=== PATIENT | male | born 1995 | race Caucasian/White ===

== ENCOUNTER 2020-09-13 09:12 | Outpatient (REF) | payer OTHER, SELFPAY | END 2020-09-13 09:13 | disposition home or self-care (01) | LOC: HO.LAB 09:12 | PROVIDERS: Visit Provider Nurse Practitioner Family | DX: J30.9 Allergic rhinitis, unspecified (principal); Z20.822 Contact with and (suspected) exposure to COVID-19 | CPT/HCPCS: 36415; U0003; U0005 ==

== ENCOUNTER 2020-10-05 07:48 | Outpatient (REF) | payer OTHER, SELFPAY ==
[2020-10-05 08:20] LABS: MANUAL DIFF FLAG NO
[2020-10-05 08:34] LABS: Basophils Percent Auto 0.4 % (0-2); Eosinophils Absolute Auto 0.1 X10*3/uL (0.0-0.4); Eosinophils Percent Auto 2.8 % (0-4); Hematocrit 44.2 % (42-52); Hemoglobin 15.9 g/dl (14.0-18.0); Imm Gran Abs Auto 0.01 X10*3/uL (0.00-0.03); Imm Gran Pct Auto 0.2 % (0.0-0.4); Lymphocytes Absolute Auto 1.7 X10*3/uL (1.2-4.9); Lymphocytes Percent Auto 34.8 % (20-40); Mean Corpuscular Hemoglobin 31.9 pg (27.0-33.0); Mean Corpuscular Volume 88.8 fL (80-98); Mean Platelet Volume 10.1 fL (9.4-12.4); Monocytes Absolute Auto 0.4 X10*3/uL (0.1-1.2); Monocytes Percent Auto 7.3 % (2-11); Neutrophils Absolute Auto 2.7 X10*3/uL (2.0-8.3); Neutrophils Percent Auto 54.5 % (45-73); Platelet Count 204 X10*3/uL (160-400); Red Blood Count 4.98 X10*6/uL (4.60-5.80); Red Cell Distribution Width 11.9 % (11.0-16.0); White Blood Count 4.9 X10*3/uL (4.8-10.8)
[2020-10-05 09:00] LABS: Alanine Aminotransferase 27 U/L (0-40); Albumin Level 4.4 g/dL (3.5-5.0); Alkaline Phosphatase 59 U/L (39-117); Anion Gap 12 (12-20); Aspartate Amino Transferase 25 U/L (5-37); Bilirubin Total 0.6 mg/dL (0.0-1.0); Blood Urea Nitrogen 16 mg/dL (9-16); Calcium 9.1 mg/dL (8.4-10.2); Carbon Dioxide 28 mmol/L (22-29); Chloride 106 mmol/L (96-108); Cholesterol 169 mg/dL; Estimated Glomerular Filt Rate > 60; Glucose Fasting 99 mg/dL (60-99); HDL Cholesterol 46 mg/dL; LDL Cholesterol Calculated 110 mg/dl; Potassium 4.4 mmol/L (3.3-5.1); Sodium 142 mmol/L (135-145); Total Protein 6.8 g/dL (6.5-8.0); Triglycerides 69 mg/dL
== END 2020-10-05 07:49 | disposition home or self-care (01) ==
LOC: HO.LAB 07:48
PROVIDERS: PCP Internal Medicine; Visit Provider Internal Medicine
DX: E11.9 Type 2 diabetes mellitus without complications (principal); Z00.00 Encounter for general adult medical examination without abnormal findings
CPT/HCPCS: 36415; 80053; 80061; 85025

== ENCOUNTER 2020-10-20 10:06 | Outpatient (REF) | payer OTHER, SELFPAY ==
[2020-10-20 12:37] LABS: Syphilis Screen Nonreactive (Nonreactive)
[2020-10-27 20:41] LABS: HSV 1 IgM IFA Negative (Negative); HSV 2 IgM IFA Negative (Negative)
== END 2020-10-20 10:07 | disposition home or self-care (01) ==
LOC: HO.HMGCLDS 10:06
PROVIDERS: PCP Internal Medicine; Visit Provider Nurse Practitioner Family
DX: N48.1 Balanitis (principal); L01.00 Impetigo, unspecified
CPT/HCPCS: 36415; 86695; 86696; 86780

== ENCOUNTER 2021-08-14 09:52 | Outpatient (REF) | payer OTHER, SELFPAY ==
[2021-08-14 10:13] LABS: MANUAL DIFF FLAG NO
[2021-08-14 10:47] LABS: Basophils Percent Auto 0.2 % (0-2); Eosinophils Absolute Auto 0.1 X10*3/uL (0.0-0.4); Eosinophils Percent Auto 1.8 % (0-4); Hematocrit 46.8 % (42.0-52.0); Hemoglobin 16.7 g/dl (14.0-18.0); Imm Gran Abs Auto 0.01 X10*3/uL (0.00-0.03); Imm Gran Pct Auto 0.2 % (0.0-0.4); Lymphocytes Absolute Auto 1.7 X10*3/uL (1.2-4.9); Lymphocytes Percent Auto 39.3 % (20-40); Mean Corpuscular HGB Conc 35.7 g/dl (31.0-36.0); Mean Corpuscular Hemoglobin 31.9 pg (27.0-33.0); Mean Corpuscular Volume 89.5 fL (80.0-98.0); Mean Platelet Volume 10.5 fL (9.4-12.4); Monocytes Absolute Auto 0.3 X10*3/uL (0.1-1.2); Monocytes Percent Auto 7.7 % (2-11); Neutrophils Absolute Auto 2.3 x10*3/uL (2.0-8.3); Neutrophils Percent Auto 50.8 % (45-73); Platelet Count 195 X10*3/uL (160-400); Red Blood Count 5.23 X10*6/uL (4.60-5.80); Red Cell Distribution Width 12.2 % (11.0-16.0); White Blood Count 4.4 X10*3/uL (4.8-10.8)
[2021-08-14 11:20] LABS: Alanine Aminotransferase 20 U/L (0-40); Albumin Level 4.6 g/dL (3.5-5.0); Alkaline Phosphatase 62 U/L (39-117); Anion Gap 12 (12-20); Aspartate Amino Transferase 22 U/L (5-37); Bilirubin Total 0.9 mg/dL (0.0-1.0); Blood Urea Nitrogen 14 mg/dL (9-16); Calcium 9.5 mg/dL (8.4-10.2); Carbon Dioxide 30 mmol/L (22-29); Chloride 102 mmol/L (96-108); Cholesterol 171 mg/dL; Estimated Glomerular Filt Rate > 60; Glucose Fasting 89 mg/dL (60-99); HDL Cholesterol 42 mg/dL; LDL Cholesterol Calculated 109 mg/dl; Potassium 4.7 mmol/L (3.3-5.1); Sodium 139 mmol/L (135-145); Total Protein 7.2 g/dL (6.5-8.0); Triglycerides 101 mg/dL
[2021-08-14 11:32] LABS: Thyroid Stimulating Hormone 2.22 uIU/mL (0.32-4.0)
== END 2021-08-14 09:53 | disposition home or self-care (01) ==
LOC: HO.LAB 09:52
PROVIDERS: PCP Internal Medicine; Visit Provider Internal Medicine
DX: Z00.00 Encounter for general adult medical examination without abnormal findings (principal); Z13.0 Encounter for screening for diseases of the blood and blood-forming organs and certain disorders involving the immune mechanism
CPT/HCPCS: 36415; 80053; 80061; 84443; 85025

== ENCOUNTER 2022-05-08 15:05 | Outpatient (REF) | payer BC, SELFPAY ==
[2022-05-08 16:04] LABS: Influenza A PCR NEGATIVE (Negative); Influenza B PCR NEGATIVE (Negative); Resp Syncy Virus RNA Qual PCR NEGATIVE (Negative); SARS COV2 PCR INHOUSE NEGATIVE (Negative)
== END 2022-05-08 15:06 | disposition home or self-care (01) ==
LOC: HO.LNP 15:05
PROVIDERS: Visit Provider Physician Assistant
DX: Z20.822 Contact with and (suspected) exposure to COVID-19 (principal); J06.9 Acute upper respiratory infection, unspecified
CPT/HCPCS: 0241U

== ENCOUNTER 2022-12-06 15:30 | Outpatient (AMB) | payer BC, SELFPAY ==
--- NOTE | 2022-12-06 15:47 | A.OFFVIS_ITS ---
Intake Intake Visit Reasons: Advice on contraception Intake Note: Pt presents to the office today for advice on contraception. Allergies pollen extracts Allergy (Mild, Verified 12/25/22 13:51) Sneezing HPI HPI Comments History of Present Illness Details Mikel is a very pleasant male. He is a patient of Dr. Cunningham? . He is seen for the following urologic condition - anxiety about health - Vasectomy evaluation Vasectomy evaluation The patient presents for vasectomy consultation. He is currently He has fathered - 1 child, with a single partner. The youngest child is - 2 years old. His partner is aware and permissive for a vasectomy Current form of control is none. The vasectomy may be complicated due to a history of no complicating issues, inguinal hernia repair, orchidopexy, history of orchitis, orchiectomy. Patient education has been provided via [employer] video, via printed information, risks of failure, recovery time, bruising and potential pain syndrome have been stressed Has interest in vasectomy and questions answered [facility] Surgical History No pertinent past surgical history Family History Father No problems noted. Mother No problems noted. Social History Housing: Apartment Alcohol intake: current Alcohol intake frequency: a few times a month Patient Tobacco Use Status: Never used Tobacco e-Cigarette/Vaping Use: Never Used Second Hand Smoke Exposure: No service: No Current occupational status: employed Cognitive needs: No Hearing needs: No Vision needs: No Review of Systems Const Denies chills and Denies fever(s) Card Reports no additional complaints and Denies syncope Resp Denies cough GI Denies abdominal pain and Denies heartburn Reports as per HPI and Denies change in libido Neuro Denies syncope Psych Denies change in libido Endo Denies change in libido Physical Exam Const General: cooperative, healthy appearing, comfortable and no acute distress Orientation/consciousness: patient oriented x3 HEENT Face and sinus: Yes normal facial exam Mouth: moist mucous membranes Neck Neck: Yes normal visual inspection, Yes full ROM and Yes trachea midline Chest Chest palpation & inspection: normal inspection of the chest Resp Effort & Inspection: normal respiratory effort, able to speak in complete sentences and no respiratory distress GI Inspection: Yes normal to inspection Back/Spine/Pelvis Cervical Spine: normal cervical lordosis Thoracic/Lumbar Spine: thoracic and lumbar spine normal to inspection Skin General skin exam: no rashes or lesions noted Neuro General: patient oriented x3, gait normal, tone normal and moves all extremities Extrem General: Yes normal to inspection and Yes capillary refill normal Assessment & Plan Assessment & Plan (1) Panic disorder: Code(s): F41.0 - Panic disorder [episodic paroxysmal anxiety] Plan Will call if interested in vasectomy Patient Instructions: Imaging studies, laboratory and physical exam results were discussed and rev iewed in detail. No major barriers to patient understanding were identified. An opportunity to ask questions regarding the treatment plan was provided. All questions were answered. The patient expressed understanding and agreement with the above treatment plan. The patient is aware they should contact our office by phone for worsening of their current condition or the appearance of new urologic symptoms. Compliance is encouraged with any medications and followup testing that is ordered. It is a privilege to participate in the urologic care of your patient. If you have any questions or concerns regarding treatment for the above conditions, or other urologic issues, please do not hesitate to contact me. The office telephone contact is [phone]. This note is constructed using voice recognition software. While every effort has been made to ensure accuracy licensed certified orthotist errors may have been included. Yours sincerely, Dr Everett Herrera MD, [facility] - Urology Providers of Expert, Compassionate Care for the Genitourinary System Coding Level of Care Code New Pt Level 3 (84441) Diagnoses Panic disorder F41.0
== END 2022-12-06 16:44 | disposition home or self-care (01) ==
LOC: HO.HUSH 15:30
PROVIDERS: PCP Internal Medicine; Visit Provider Urology
DX: F41.0 Panic disorder [episodic paroxysmal anxiety] (principal)
CPT/HCPCS: 99203

== ENCOUNTER → 2022-12-06 15:30 | Outpatient (BNVA) | payer BC, SELFPAY | PROVIDERS: PCP Internal Medicine; Visit Provider Urology ==

== ENCOUNTER 2022-12-26 12:30 | Outpatient (REF) | payer BC, SELFPAY | END 2022-12-26 12:31 | disposition home or self-care (01) | LOC: HO.LAB 12:30 | PROVIDERS: PCP Internal Medicine; Visit Provider Internal Medicine | DX: N28.9 Disorder of kidney and ureter, unspecified (principal); D64.9 Anemia, unspecified; E78.5 Hyperlipidemia, unspecified | CPT/HCPCS: 36415; 80053; 80061; 85025 ==

== ENCOUNTER 2023-05-20 08:49 | Outpatient (AMB) | payer BC, SELFPAY ==
[2023-05-20 09:30] VITALS: BP 128/78; PULSE 84; TEMP 36.3; O2SAT 97
--- NOTE | 2023-05-20 09:30 | AM.OFFWIN_ITS ---
Intake Vital Signs 05/20/23 09:30 Height 5 ft 10 in Weight 209 lb 4 oz BMI 30.0 BP 128/78 Blood Pressure Location Rt brachial Position Sitting Pulse 84 Pulse Source Pulse Oximeter Temp 97.4 F Temp Source Temporal Artery Scan Pulse Oximetry (%) 97 Intake Visit Reasons: EP Full body rash Intake Note: pt is here for c/o body rash since yesterday started small and growing up his leg Patient Tobacco Use Status: Never used Tobacco Allergies pollen extracts Allergy (Mild, Verified 05/21/23 06:29) Sneezing Medication List - Last Reconciled 05/21/23 by Jose Menezes MD cetirizine 10 mg PO DAILY PRN fluoxetine 40 mg PO DAILY fluoxetine (Prozac) 20 mg PO DAILY lorazepam 1 mg PO Q6-8H PRN prednisone 60 mg (3 x 20 mg) PO DAILY sumatriptan succinate 25 mg PO Q2-4H PRN Do you need a note to return to daycare/school/sports/work: Yes HPI EP Full body rash HPI Details 27 yr old male presents to the office fo r a sick visit. Pt has noticed a rash on his inner thighs and back of the legs. Symptoms started yesterday. Itching sx present. No fevers or chills. PFSH Surgical History No pertinent past surgical history Family History Father No problems noted. Mother No problems noted. Social History Housing: Apartment Alcohol intake: current Alcohol intake frequency: a few times a month Patient Tobacco Use Status: Never used Tobacco e-Cigarette/Vaping Use: Never Used Second Hand Smoke Exposure: No service: No Current occupational status: employed Cognitive needs: No Hearing needs: No Vision needs: No Physical Exam Vital Signs: Last Vital Signs Temp 97.4 F 05/20/23 09:30 Pulse 84 05/20/23 09:30 BP 128/78 05/20/23 09:30 Pulse Ox 97 05/20/23 09:30 BMI result Body Mass Index 30.0 Skin Other: Fine erythematous rash on the thigh, and back of the leg. No vesicles or pustules. Assessment & Plan Assessment & Plan (1) Rash: Code(s): R21 - Rash and other nonspecific skin eruption Plan: Most likely irritant dermatitis. Trial of prednisone. If sx do not improve to follow up here. Medications: New 2 prednisone 60 mg (3 x 20 mg) PO DAILY 9 tabs 0RF Coding Level of Care Code Est Pt Level 3 (66642) Diagnoses Rash R21
== END 2023-05-20 10:27 | disposition home or self-care (01) ==
PROVIDERS: PCP Internal Medicine; Visit Provider Internal Medicine
DX: R21 Rash and other nonspecific skin eruption (principal)
CPT/HCPCS: 99213

== ENCOUNTER 2023-12-30 12:55 | Outpatient (AMB) | payer BC, SELFPAY ==
[2023-12-30 12:56] VITALS: BP 120/70; PULSE 74; O2SAT 98; BMI 30.4
--- NOTE | 2023-12-30 12:56 | MHC.PC.OV ---
Vital Signs 12/30/23 12:56 Height 5 ft 10 in Weight 212 lb BMI 30.4 BP 120/70 Blood Pressure Location Lt brachial Position Sitting Pulse 74 Pulse Source Pulse Oximeter Pulse Oximetry (%) 98 Oxygen Delivery Method Room Air Intake Visit Reasons: pe Aperture Mask Etcher Required: No Regional Property Manager: Not Required per policy Accompanied by: Self / Same As Patient Allergies pollen extracts Allergy (Mild, Verified 12/30/23 12:57) Sneezing Medication List - Last Reconciled 12/31/23 by Jhony Cunningham MD cetirizine 10 mg PO DAILY PRN fluoxetine 40 mg PO DAILY fluoxetine (Prozac) 20 mg PO DAILY lorazepam 1 mg PO Q6-8H PRN prednisone 60 mg (3 x 20 mg) PO DAILY sumatriptan succinate 25 mg PO Q2-4H PRN Tobacco use date assessed: 12/30/23 Dental Screening Dental Screen Date: 12/30/23 Did you have a dental visit in the last 12 months?: Yes Did you have a dental problem in the last 6 months where you did not have access to dental care?: No Was dental information given to patient?: Patient has dentist HPI pe HPI Details depression on rx; doing well and compliant [facility] Surgical History No pertinent past surgical history Family History Father No problems noted. Mother No problems noted. Social History Housing: Apartment Alcohol intake: current Alcohol intake frequency: a few times a month Patient Tobacco Use Status: Never used Tobacco e-Cigarette/Vaping Use: Never Used Second Hand Smoke Exposure: No service: No Current occupational status: employed Cognitive needs: No Hearing needs: No Vision needs: No Questionnaire PHQ-9 Over the last 2 weeks, how often have you been bothered by any of the following problems? 1. Little interest or pleasure in doing things: not at all 2. Feeling down, depressed, or hopeless: not at all 3. Trouble falling or staying asleep, or sleeping too much: not at all 4. Feeling tired or having little energy: not at all 5. Poor appetite or overeating: not at all 6. Feeling bad about yourself - or that you are a failure or have let yourself or your family down: not at all 7. Trouble concentrating on things, such as reading the newspaper or watching television: not at all 8. Moving or speaking so slowly that other people could have noticed. Or the opposite - being so fidgety or restless that you have been moving around a lot more than usual: not at all 9. Thoughts that you would be better off or of hurting yourself in some way: not at all Total score: 0 49456 - PHQ-9 Billing: Yes Source: Developed by Drs. Speedy Liao, Yuko Sanders, Thee Clarke and colleagues, with an educational bc from [employer]. Thrive Questionnaire Date Thrive assessed: 12/30/23 I am a: Patient What is your living situation today?: I have a steady place to live Within the past 12 months, did the food you bought not last and you didn't have the money to get more?: Never true Within the past 12 months, did you worry whether your food would run out before you got money to buy more?: Never true Do you have trouble paying for medicines?: No Do you have trouble getting transportation to medical appointments?: No Do you have trouble paying your heating and electricity bill?: No Do you have trouble taking care of your child, family member or friend?: No Do you have trouble with day-to-day activities such as bathing, preparing meals, shopping, managing finances, etc.?: No Are you currently unemployed and looking for a job?: No Are you interested in more education?: No Please select the resources that you would like help with: None Currently or been in a relationship where the following occur: No concerns reported THRIVE Score: 0 AUDIT C Alcohol Use Questionnaire (AUDIT-C) 1. How often do you have a drink containing alcohol?: Never 3. How often do you have six or more drinks on one occasion?: Never Total Score: 0 Score Reviewed/Action Taken: Yes DMITRIY-7 AMB Questionnaire DMITRIY-7 Date DMITRIY - 7 assessed: 12/30/23 Feeling nervous, anxious, or on edge: 0 = Not at all Not being able to stop or control worryin = Not at all Worrying too much about different things: 0 = Not at all Trouble relaxin = Not at all Being so restless that it is hard to sit still: 0 = Not at all Becoming easily annoyed or irritable: 0 = Not at all Feeling afraid as if something awful might happen: 0 = Not at all Total DMITRIY-7 score (0-4 normal; 5-9 mild; 10-14 moderate; 15-21 severe): 0 Source: Developed by Drs. Speedy Liao, Yuko Sanders, Thee Clarke and colleagues, with an educational bc from [employer]. DMITRIY-7 Assessment Billing DMITRIY-7 Assessment Tool: DMITRIY-7 Assessment 84169 Review of Systems Const Denies chills, Denies fatigue, Denies headache(s) and Denies weight loss Eyes Denies change in vision, Denies diplopia and Denies eye pain ENT Denies vertigo, Denies dizziness, Denies headache(s) and Denies nasal discharge Card Denies chest pain, Denies rapid heart rate and Denies dyspnea on exertion Resp Denies chest congestion, Denies cough, Denies pain with cough and Denies dyspnea on exertion GI Denies abdominal pain, Denies hematochezia and Denies change in bowel habits Musc Denies myalgias, Denies arthralgias and Denies joint swelling Skin/Breast Denies lesions and Denies unusual bruising Neuro Denies vertigo, Denies dizziness, Denies headache(s) and Denies focal weakness Endo Denies fatigue Physical exam (Primary Care) Vital Signs: Last Vital Signs Pulse 74 12/30/23 12:56 BP 120/70 12/30/23 12:56 Pulse Ox 98 12/30/23 12:56 Oxygen Delivery Method Room Air 12/30/23 12:56 BMI result Body Mass Index 30.4 Tobacco/Smoking Status: Tobacco use Status Tobacco use date assessed 12/30/23 12/30/23 12:58 Patient Tobacco Use Status Never used Tobacco 12/30/23 12:58 e-Cigarette/Vaping Use Never Used 12/30/23 12:58 PHQ-9: PHQ-9 Score PHQ-9: Total score 0 12/30/23 13:03 Thrive Assessment: Date of Thrive Assessment Date Thrive assessed 12/30/23 12/30/23 12:58 Currently or been in a relationship where the following occur: No concerns reported Const General: cooperative, healthy appearing and no acute distress Orientation/consciousness: oriented to person, oriented to place and oriented to time HENMT Head: Yes normal to inspection, Yes normocephalic and Yes atraumatic Mouth: Normal oral and palatal mucosa present and tongue normal Throat: Yes posterior oropharynx normal and Yes uvula midline Eyes General: appearance normal, both eyes and all related structures Neck Neck: Yes normal visual inspection, Yes full ROM and Yes no lymphadenopathy Thyroid: Thyroid normal Carotids: normal carotid upstroke Chest Chest palpation & inspection: normal inspection of the chest Resp Effort & Inspection: normal respiratory effort and able to speak in complete sentences Auscultation: clear to auscultation bilaterally Cardio Jugular venous distension: no JVD Palpation: normal PMI Rate: regular rate Rhythm: regular rhythm Heart sounds: S1 normal heart sound present and S2 normal heart sound present GI Inspection: Yes normal to inspection Palpation (GI): Soft to palpation and No hepatosplenomegaly present Auscultation: normal bowel sounds General: Yes no CVA tenderness Back/Spine/Pelvis Back: no CVA tenderness Skin General skin exam: no rashes or lesions noted Neuro General: oriented to person, oriented to place and oriented to time Extrem General: Yes normal to inspection and Yes full ROM Assessment and Plan Assessment & Plan (1) Physical exam: Code(s): Z00.00 - Encounter for general adult medical examination without abnormal findings Plan: do labs (2) Panic disorder: Code(s): F41.0 - Panic disorder [episodic paroxysmal anxiety] Plan: stable; same rx (3) Migraine headache: Code(s): G43.909 - Migraine, unspecified, not intractable, without status migrainosus Plan: refer neuro Orders: Orders Comprehensive [place]. Panel Fast 12/30/23 Z13.9 - Encounter for screening, unspecified Testosterone, Free/Total 12/30/23 R68.82 - Decreased libido Complete Blood Count Auto Diff 12/30/23 Z13.0 - Encounter for screening for diseases of the blood and blood-forming organs and certain disorders involving the immune mechanism Lipid Panel 12/30/23 Z13.220 - Encounter for screening for lipoid disorders Thyroid Stimulating Hormone 12/30/23 Z13.29 - Encounter for screening for other suspected endocrine disorder Referrals Neurology Referral G43.909 - Migraine, unspecified, not intractable, without status migrainosus Medications: Refilled fluoxetine (Prozac) 20 mg PO DAILY 60 caps 1RF Coding Level of Care Code Est Pt Prev Care 18-39y(91901) Diagnoses Physical exam Z00.00 Panic disorder F41.0 Migraine headache G43.909 Additional Codes DMITRIY-7 Assessment Billing - DMITRIY-7 Assessment Tool: DMITRIY-7 Assessment 95489 ([id number])
== END 2023-12-30 13:24 | disposition home or self-care (01) ==
PROVIDERS: PCP Internal Medicine; Visit Provider Internal Medicine
DX: Z00.00 Encounter for general adult medical examination without abnormal findings (principal); F41.0 Panic disorder [episodic paroxysmal anxiety]; G43.909 Migraine, unspecified, not intractable, without status migrainosus
CPT/HCPCS: 99395

== ENCOUNTER 2024-01-02 13:29 | Outpatient (REF) | payer BC, SELFPAY ==
[2024-01-02 13:42] LABS: MANUAL DIFF FLAG NO
[2024-01-02 15:00] LABS: Basophils Percent Auto 0.5 % (0-2); Eosinophils Absolute Auto 0.1 X10*3/uL (0.0-0.4); Eosinophils Percent Auto 1.6 % (0-4); Hemoglobin 16.6 g/dl (14.0-18.0); Imm Gran Abs Auto 0.01 X10*3/uL (0.00-0.03); Imm Gran Pct Auto 0.2 % (0.0-0.4); Lymphocytes Percent Auto 36.6 % (20-40); Mean Corpuscular HGB Conc 36.9 g/dl (31.0-36.0); Mean Corpuscular Hemoglobin 31.4 pg (27.0-33.0); Mean Corpuscular Volume 85.1 fL (80.0-98.0); Mean Platelet Volume 10.6 fL (9.4-12.4); Monocytes Absolute Auto 0.4 X10*3/uL (0.1-1.2); Monocytes Percent Auto 7.2 % (2-11); Neutrophils Percent Auto 53.9 % (45-73); Platelet Count 208 X10*3/uL (160-400); Red Blood Count 5.29 X10*6/uL (4.60-5.80); White Blood Count 5.5 X10*3/uL (4.8-10.8)
[2024-01-02 16:09] LABS: Alanine Aminotransferase 13 U/L (0-40); Albumin Level 4.7 g/dL (3.5-5.0); Alkaline Phosphatase 50 U/L (39-117); Anion Gap 9 (12-20); Aspartate Amino Transferase 16 U/L (5-37); Bilirubin Total 0.8 mg/dL (0.0-1.0); Blood Urea Nitrogen 15 mg/dL (9-16); Calcium 9.8 mg/dL (8.4-10.2); Carbon Dioxide 30 mmol/L (22-29); Chloride 104 mmol/L (96-108); Cholesterol 156 mg/dL (<200); Estimated Glomerular Filt Rate > 60; Glucose Fasting 79 mg/dL (60-99); HDL Cholesterol 30 mg/dL (>40); LDL Cholesterol Calculated 100 mg/dL (<100); Potassium 4.2 mmol/L (3.3-5.1); Sodium 139 mmol/L (135-145); Total Protein 7.2 g/dL (6.5-8.0); Triglycerides 134 mg/dL (<150)
[2024-01-02 16:25] LABS: Thyroid Stimulating Hormone 2.38 uIU/mL (0.32-4.0)
[2024-01-08 08:28] LABS: Testosterone, Free 83.6 pg/mL (35.0-155.0); Testosterone, Total 550 ng/dL (250-1100)
== END 2024-01-02 13:30 | disposition home or self-care (01) ==
LOC: HO.LAB 13:29
PROVIDERS: PCP Internal Medicine; Visit Provider Internal Medicine
DX: Z13.29 Encounter for screening for other suspected endocrine disorder (principal); Z13.6 Encounter for screening for cardiovascular disorders; Z13.0 Encounter for screening for diseases of the blood and blood-forming organs and certain disorders involving the immune mechanism; Z13.220 Encounter for screening for lipoid disorders; R68.82 Decreased libido
CPT/HCPCS: 36415; 80053; 80061; 84402; 84403; 84443; 85025

== ENCOUNTER 2024-08-10 11:01 | Outpatient (AMB) | payer BC, SELFPAY ==
--- NOTE | 2024-08-10 11:03 | A.OFFPC_ITS ---
Vital Signs 08/10/24 11:05 Height 5 ft 10 in Weight 218 lb BMI 31.3 BP 120/66 Blood Pressure Location Lt brachial Position Sitting Pulse 79 Pulse Source Pulse Oximeter Temp 98 F Temp Source Temporal Artery Scan Pulse Oximetry (%) 96 Oxygen Delivery Method Room Air Intake Visit Reasons: Headaches/migraines Intake Note: Patient is here to follow up on Headaches/Migraines. Streetsweeper Operator Required: No Dehydrator: Not Required per policy Accompanied by: Self / Same As Patient Allergies pollen extracts Allergy (Mild, Verified 08/10/24 11:04) Sneezing Medication List - Last Reconciled 08/10/24 by Jhony Cunningham MD cetirizine 10 mg PO DAILY PRN fluoxetine (Prozac) 20 mg PO DAILY lorazepam 1 mg PO Q6-8H PRN propranolol ER 60 mg PO DAILY sumatriptan succinate 25 mg PO Q2-4H PRN Tobacco use date assessed: 08/10/24 Dental Screening Dental Screen Date: 08/10/24 Did you have a dental visit in the last 12 months?: Yes Did you have a dental problem in the last 6 months where you did not have access to dental care?: No Was dental information given to patient?: Patient has dentist HPI Headaches/migraines HPI Details migraines with aura; not controlled on current rx; needs refills; has referral to neuro [facility] Surgical History No pertinent past surgical history Family History (Updated 08/10/24 @ 11:08 by TORSTEN Brito) Father No problems noted. Mother No problems noted. Other Mental health disorder Social History Housing: Apartment Alcohol intake: current Alcohol intake frequency: a few times a month Patient Tobacco Use Status: Never used Tobacco e-Cigarette/Vaping Use: Never Used Second Hand Smoke Exposure: No service: No Current occupational status: employed Cognitive needs: No Hearing needs: No Vision needs: No Questionnaire PHQ-9 Over the last 2 weeks, how often have you been bothered by any of the following problems? 1. Little interest or pleasure in doing things: not at all 2. Feeling down, depressed, or hopeless: not at all 3. Trouble falling or staying asleep, or sleeping too much: not at all 4. Feeling tired or having little energy: not at all 5. Poor appetite or overeating: not at all 6. Feeling bad about yourself - or that you are a failure or have let yourself or your family down: not at all 7. Trouble concentrating on things, such as reading the newspaper or watching television: not at all 8. Moving or speaking so slowly that other people could have noticed. Or the opposite - being so fidgety or restless that you have been moving around a lot more than usual: not at all 9. Thoughts that you would be better off or of hurting yourself in some way: not at all Total score: 0 Depression Screening Interpretation: Negative Depression Screening Done: Yes Source: Developed by Drs. Speedy Liao, Yuko Sanders, Thee Clarke and colleagues, with an educational bc from [employer]. Thrive Questionnaire Date Thrive assessed: 08/10/24 I am a: Patient What is your living situation today?: I have a steady place to live Within the past 12 months, did the food you bought not last and you didn't have the money to get more?: Never true Within the past 12 months, did you worry whether your food would run out before you got money to buy more?: Never true Do you have trouble paying for medicines?: No Do you have trouble getting transportation to medical appointments?: No Do you have trouble paying your heating and electricity bill?: No Do you have trouble taking care of your child, family member or friend?: No Do you have trouble with day-to-day activities such as bathing, preparing meals, shopping, managing finances, etc.?: No Are you currently unemployed and looking for a job?: No Are you interested in more education?: No Please select the resources that you would like help with: None Currently or been in a relationship where the following occur: No concerns reported THRIVE Score: 0 AUDIT C Alcohol Use Questionnaire (AUDIT-C) 2. How many drinks containing alcohol do you have on a typical day when you are drinking?: 1 or 2 3. How often do you have six or more drinks on one occasion?: Never Total Score: 0 DMITRIY-7 AMB Questionnaire DMITRIY-7 Date DMITRIY - 7 assessed: 08/10/24 Feeling nervous, anxious, or on edge: 0 = Not at all Not being able to stop or control worryin = Not at all Worrying too much about different things: 0 = Not at all Trouble relaxin = Not at all Being so restless that it is hard to sit still: 0 = Not at all Becoming easily annoyed or irritable: 0 = Not at all Feeling afraid as if something awful might happen: 0 = Not at all Total DMITRIY-7 score (0-4 normal; 5-9 mild; 10-14 moderate; 15-21 severe): 0 Source: Developed by Drs. Speedy Liao, Yuko Sanders, Thee Clarke and colleagues, with an educational bc from [employer]. Review of Systems Const Denies chills and Denies weight loss Card Denies chest pain, Denies syncope, Denies irregular heart rhythm and Denies dyspnea Resp Denies chest congestion, Denies cough and Denies dyspnea GI Denies abdominal pain, Denies change in stool character, Denies nausea and Denies vomiting Musc Denies deformity and Denies joint swelling Neuro Denies syncope Physical exam (Primary Care) Vital Signs: Last Vital Signs Temp 98 F 08/10/24 11:05 Pulse 79 08/10/24 11:05 BP 120/66 08/10/24 11:05 Pulse Ox 96 08/10/24 11:05 Oxygen Delivery Method Room Air 08/10/24 11:05 BMI result Body Mass Index 31.3 Tobacco/Smoking Status: Tobacco use Status Tobacco use date assessed 08/10/24 08/10/24 11:09 Patient Tobacco Use Status Never used Tobacco 08/10/24 11:09 e-Cigarette/Vaping Use Never Used 08/10/24 11:09 PHQ-9: PHQ-9 Score PHQ-9: Total score 0 08/10/24 11:09 Depression Screening Interpretation: Negative Thrive Assessment: Date of Thrive Assessment Date Thrive assessed 08/10/24 08/10/24 11:09 Currently or been in a relationship where the following occur: No concerns reported Const General: cooperative, comfortable, no acute distress and alert Neck Neck: Yes no lymphadenopathy Thyroid: Thyroid normal Resp Effort & Inspection: normal respiratory effort Auscultation: clear to auscultation bilaterally Percussion: percussion normal Cardio Jugular venous distension: no JVD Palpation: normal PMI Rate: regular rate Rhythm: regular rhythm Heart sounds: S1 normal heart sound present and S2 normal heart sound present GI Inspection: Yes normal to inspection Palpation (GI): No hepatosplenomegaly present Skin General skin exam: no rashes or lesions noted Extrem General: Yes no clubbing, cyanosis or edema Coding Level of Care Code Est Pt Level 3 (96687) Diagnoses Migraine headache G43.909 Assessment & Plan Assessment & Plan (1) Migraine headache: Code(s): G43.909 - Migraine, unspecified, not intractable, without status migrainosus Category: Medical Plan: rx and referral Medications: Refilled sumatriptan succinate do not exceed 8 doses per 24 hrs 25 mg PO Q2-4H PRN 7 tabs 1RF migraine headache
[2024-08-10 11:05] VITALS: BP 120/66; PULSE 79; TEMP 36.6; O2SAT 96; BMI 31.3
--- OUTSIDE RECORDS SUMMARY | 2024-08-10 12:12 | XMS_ITS | Clinical Summary ---
Author Organization [facility] Address [address] [place] [address] Phone Care Team Providers Care Scarf Gluer Name Role Phone Lane Buck MD Primary Care Provider [phone] Immunizations Immunization Administration Dates Next Due DTaP 09/25/1999, 6,03/17/1995,01/14/1995, 1994 HPV 02/20/2012,09/20/2011,08/09/2011 Hep B 06/19/1995,1994,1994 HiB 12/26/1995,03/17/1995,01/14/1995 ,1994 Influenza 03/19/2013,02/22/2011,04/24/2010 ,05/08/2007 MMR 09/25/1998,12/26/1995 Meningococcal MCV4, Unspecified 01/28/2014,07/13 No Vaccine Administered 07/13/2009 Polio 09/25/1999, 6,03/17/1995,01/14/1995, 1994 Tdap 09/19/2006 Varicella 07/13/2009,03/24/1996 Social History Tobacco Use Types Packs/Day Years Used Date Smoking Tobacco: Former Comments:Former Smoker; Sex and Gender Information Value Date Recorded Sex Assigned at Not on file Legal Sex Male 5:29 PM EST Gender Identity Not on file Sexual Orientation Not on file Last Filed Vital Signs Vital Sign Reading Time Taken Comments Blood Pressure 100/53 12/30/2014 12:00 AM EDT Pulse 72 12/30/2014 12:00 AM EDT Temperature 36.3 ??C (97.4 ??F) 01/13/2015 12:00 AM E DT Respiratory Rate - - Oxygen Saturation - - Inhaled Oxygen Concentration - - Weight 78.9 kg (174 lb) 12/30/2014 12:00 AM EDT Height 176.5 cm (5' 9.5 ) 12/30/2014 12:00 AM ED T Body Mass Index 25.33 12/30/2014 12:00 AM EDT Plan of Treatment Health Maintenance Due Date Last Done Comments DTaP,Tdap,and Td Vaccines (7 - Td or Tdap) 09/19/2016 09/19/2006, 09/25/1999, 03/24/1996, Additional history exists Influenza Vaccines (#1) 2024 03/19/20 13, 02/22/2011, 04/24/2010, Additional history exists COVID-19 Vaccine () 02/22/2024 Hepatitis B Vaccines Completed 06/19/1995, 1994, 1994 HIB Vaccines Completed 12/26/1995, 02/22, 01/14/1995, Additional history exists MMR Vaccines Completed 09/25/1998, 12/26/1995 IPV Vaccines Completed 09/25/1999, 07/1995, 03/17/1995, Additional history exists Varicella Vaccines Completed 07/13/2009, 03/24/1996 HPV Vaccines Completed 02/20/2012, 08/23, 08/09/2011 Meningococcal Vaccine Aged Out 01/28/2014, 010 No longer eligible based on patient's age to complete this topic Hepatitis A Vaccines Aged Out No long er eligible based on patient's age to complete this topic Men B Vaccine Aged Out No longer elig ible based on patient's age to complete this topic Pneumococcal Vaccine Aged Out No long er eligible based on patient's age to complete this topic Care Teams Scarf Gluer Relationship Specialty Start Date End Date Lane Buck MD [address] [facility] [address] [place] [address] PCP - General 08/23/16
== END 2024-08-10 12:41 | disposition home or self-care (01) ==
PROVIDERS: PCP Internal Medicine; Visit Provider Internal Medicine
DX: G43.909 Migraine, unspecified, not intractable, without status migrainosus (principal)

== ENCOUNTER → 2024-08-10 11:01 | Outpatient (BNVA) | payer BC, SELFPAY | PROVIDERS: PCP Internal Medicine; Visit Provider Internal Medicine ==

== ENCOUNTER 2025-01-03 10:39 | Outpatient (AMB) | payer BC, SELFPAY ==
--- NOTE | 2025-01-03 10:45 | A.OFFPC_ITS ---
Vital Signs 01/03/25 10:46 Height 5 ft 10 in Weight 210 lb BMI 30.1 BP 134/62 Blood Pressure Location Lt brachial Position Sitting Pulse Source Pulse Oximeter Temp Source Temporal Artery Scan Oxygen Delivery Method Room Air Intake Visit Reasons: REYNA Dr Cunningham Poultry Vaccinator Required: No Accompanied by: Self / Same As Patient Allergies pollen extracts Allergy (Mild, Verified 01/03/25 10:56) Sneezing Medication List - Last Reconciled 01/03/25 by Tiffany Billings PA-C cetirizine 10 mg PO DAILY PRN fluoxetine 20 mg PO DAILY lorazepam 1 mg PO Q6-8H PRN propranolol ER 60 mg PO DAILY sumatriptan succinate 25 mg PO Q2-4H PRN 22 days Tobacco use date assessed: 01/03/25 Dental Screening Dental Screen Date: 01/03/[address] Cunningham HPI Details 29-year-old male with past medical histo ry of allergic rhinitis, keratosis pilaris, migraines and panic disorder last seen by Dr. Cunningham 07/2024 coming in for transfer of care. In review of the notes, patient was seen by Neurology 08/2024 continue with sumatriptan and propranolol and topiramate was discontinued. Presenting for migraine management and preventative care. The patient experiences migraines with visual auras, described as narrowing of sight and peripheral blurriness. The migraines are debilitating, lasting over 24 hours, and occur up to 12 times monthly. The patient uses sumatriptan up to 12 times a month and propranolol, which was effective but not taken for 15 days due to a need for a refill. [facility] Surgical History No pertinent past surgical history Family History Father No problems noted. Mother No problems noted. Other Mental health disorder Social History Housing: Apartment Alcohol intake: current Alcohol intake frequency: a few times a month Patient Tobacco Use Status: Never used Tobacco e-Cigarette/Vaping Use: Never Used Second Hand Smoke Exposure: No service: No Current occupational status: employed Cognitive needs: No Hearing needs: No Vision needs: No Questionnaire Thrive Questionnaire Date Thrive assessed: 01/03/25 I am a: Patient What is your living situation today?: I have a steady place to live Within the past 12 months, did the food you bought not last and you didn't have the money to get more?: Never true Within the past 12 months, did you worry whether your food would run out before you got money to buy more?: Never true Do you have trouble paying for medicines?: No Do you have trouble getting transportation to medical appointments?: No Do you have trouble paying your heating and electricity bill?: No Do you have trouble taking care of your child, family member or friend?: No Do you have trouble with day-to-day activities such as bathing, preparing meals, shopping, managing finances, etc.?: No Are you currently unemployed and looking for a job?: No Are you interested in more education?: I choose not to answer this question THRIVE Score: 0 AUDIT C Alcohol Use Questionnaire (AUDIT-C) 1. How often do you have a drink containing alcohol?: 2-4 times a month Total Score: 2 DMITRIY-7 AMB Questionnaire DMITRIY-7 Date DMITRIY - 7 assessed: 01/03/25 Feeling nervous, anxious, or on edge: 1 = Several days Not being able to stop or control worryin = Not at all Worrying too much about different things: 0 = Not at all Trouble relaxin = Several days Being so restless that it is hard to sit still: 1 = Several days Becoming easily annoyed or irritable: 1 = Several days Feeling afraid as if something awful might happen: 1 = Several days Total DMITRIY-7 score (0-4 normal; 5-9 mild; 10-14 moderate; 15-21 severe): 5 Source: Developed by Drs. Speedy Liao, Yuko Sanders, Thee Clarke and colleagues, with an educational bc from [employer]. DMITRIY-7 Assessment Billing DMITRIY-7 Assessment Tool: DMITRIY-7 Assessment 52353 Review of Systems Const Denies body aches, Denies chills, Denies fever(s), Reports headache(s) and Denies poor appetite Eyes Reports no additional complaints and Reports requires corrective lenses ENT Denies dysphagia, Denies dizziness, Reports headache(s) and Denies odynophagia Card Denies chest pain, Denies syncope, Denies edema, Denies lightheadedness and Denies dyspnea Resp Denies dyspnea GI Denies abdominal pain, Denies constipation, Denies dysphagia, Denies diarrhea, Denies nausea, Denies odynophagia and Denies vomiting Reports no additional complaints Musc Reports no additional complaints and Denies abnormal gait Skin/Breast Reports system reviewed and no additional complaints, except as documented Neuro Denies abnormal gait, Denies dizziness, Denies syncope and Reports headache(s) Psych Reports no additional complaints Physical exam (Primary Care) Vital Signs: Last Vital Signs BP 134/62 01/03/25 10:46 Oxygen Delivery Method Room Air 01/03/25 10:46 BMI result Body Mass Index 30.1 Tobacco/Smoking Status: Tobacco use Status Tobacco use date assessed 01/03/25 01/03/25 10:47 Patient Tobacco Use Status Never used Tobacco 01/03/25 10:47 e-Cigarette/Vaping Use Never Used 01/03/25 10:47 Thrive Assessment: Date of Thrive Assessment Date Thrive assessed 01/03/25 01/03/25 10:47 Const General: cooperative, healthy appearing, comfortable and no acute distress Orientation/consciousness: patient oriented x3 HENMT Head: Yes normocephalic Ears: hearing grossly normal bilaterally General nose exam: Normal external nose present Eyes General: appearance normal, both eyes and all related structures Conjunctivae: conjunctivae normal Neck Neck: Yes full ROM and Yes no lymphadenopathy Resp Effort & Inspection: normal respiratory effort Auscultation: clear to auscultation bilaterally, no crackles, no rales, no rhonchi and no wheezes Cardio Rate: regular rate Rhythm: regular rhythm Skin General skin exam: no rashes or lesions noted Neuro General: patient oriented x3 Gait exam (Neuro): Normal gait present Extrem General: Yes normal to inspection, Yes full ROM and No edema Psych Affect: normal affect Attitude: cooperative Insight: Good insight present (Psych) Judgement: Good judgement present (Psych) Coding Level of Care Code Est Pt Level 4 (41606) Diagnoses Anxiety F41.9 Panic disorder F41.0 Migraine headache G43.909 Screening for prostate cancer Z12.5 Additional Codes DMITRIY-7 Assessment Billing - DMITRIY-7 Assessment Tool: DMITRIY-7 Assessment 48965 ([id number]) Assessment & Plan Assessment & Plan (1) Anxiety: Code(s): F41.9 - Anxiety disorder, unspecified Category: Medical Plan: Patient is currently on fluoxetine 20 mg daily and lorazepam as needed finds t his beneficial. (2) Panic disorder: Code(s): F41.0 - Panic disorder [episodic paroxysmal anxiety] Category: Medical Plan: See above (3) Migraine headache: Code(s): G43.909 - Migraine, unspecified, not intractable, without status migrainosus Category: Medical Plan: The patient will continue with propranolol as a preventative measure for migraines and sumatriptan for acute management, with a refill provided for both medications. A headache diary will be maintained to identify triggers and assess the effectiveness of the current treatment regimen. The patient will return for follow-up in three months to review the headache diary and assess the need for any adjustments in the treatment plan. If migraines persist or worsen, alternative medications or referral to a neurologist may be considered. (4) Screening for prostate cancer: Code(s): Z12.5 - Encounter for screening for malignant neoplasm of prostate Category: Medical Plan: Blood work ordered at patient request Plan Blood work has been ordered to evaluate thyroid, kidney, liver function, electrolytes, vitamins, and cholesterol levels. PSA screening was discussed but not recommended at this time due to the patient's age however he would like to test ordered. This note was constructed using voice recognition software. While every effort has been made to ensure accuracy and shear helper, still areas may have been included sometimes these areas may affect the content or meeting of the given symptoms. Total time spent caring for the patient today was 30 minutes. This includes time spent before the visit reviewing the chart, time spent during the visit, and time spent after the visit and documentation. Patient was informed and verbally consented to the use of an ambient scribe for clinic note documentation during this visit. Orders: Orders Vitamin B12 and Folate 01/03/25 G43.909 - Migraine, unspecified, not intractable, without status migrainosus, Z13.21 - Encounter for screening for nutritional disorder Free T4 (Free Thyroxine) 01/03/25 G43.909 - Migraine, unspecified, not intractable, without status migrainosus, Z00.00 - Encounter for general adult medical examination without abnormal findings Comprehensive Met. Panel 01/03/25 G43.909 - Migraine, unspecified, not intractable, without status migrainosus, Z00.00 - Encounter for general adult medical examination without abnormal findings Lipid Panel 01/03/25 Z13.220 - Encounter for screening for lipoid disorders Vitamin D 25-OH Total 01/03/25 G43.909 - Migraine, unspecified, not intractable, without status migrainosus, Z00.00 - Encounter for general adult medical examination without abnormal findings TSH reflex Free T4 01/03/25 G43.909 - Migraine, unspecified, not intractable, without status migrainosus, Z00.00 - Encounter for general adult medical examination without abnormal findings Complete Blood Count Auto Diff 01/03/25 G43.909 - Migraine, unspecified, not intractable, without status migrainosus, Z00.00 - Encounter for general adult medical examination without abnormal findings PSA, Ultra Sensitive 01/03/25 Z12.5 - Encounter for screening for malignant neoplasm of prostate Medications: Changed From sumatriptan succinate do not exceed 8 doses per 24 hrs 25 mg PO Q2-4H 22 days PRN 20 tabs 0RF migraine headache To sumatriptan succinate do not exceed 8 doses per 24 hrs 25 mg PO Q2-4H PRN 20 tabs 2RF migraine headache Refilled propranolol ER 60 mg PO DAILY 90 caps 2RF
[2025-01-03 10:46] VITALS: BP 134/62; BMI 30.1
--- OUTSIDE RECORDS SUMMARY | 2025-01-03 11:32 | XMS_ITS | Patient Health Record ---
Author Organization [facility] Billing Address [address] [place] [phone] Care Team Providers Care Underwear Trimmer Name Role Phone ELIER MARTINEZ [phone] Reason For Referral No Information Medications Medication SIG (Take, Route, Frequency, Duration) Notes Start Date End Date Status EYE RELIEF 2 DROPS PRN *Please review f or potential replacement for e-prescription and drug interaction check* Active Tylenol 325 MG 2 tab(s) orally prn; Duration: 3 day(s) Active Singulair 10 MG 1 tab(s) orally QPM; Duration: 30 day(s) Active ZyrTEC Allergy 10 MG 1 tab(s) orally once a day; Duration: 30 day(s) Active Flonase Allergy Relief 50 MCG/ACT 1 spray(s) intranasally prn; Duration: 14 day(s) Active Problems Problem Type SNOMED Code ICD Code Onset Dates Problem Status W/U Status Risk Notes Problem Allergic Rhinitis (477.0) Active confirmed Plan Of Treatment No Information Insurance Providers Payer Name Payer Address Payer Phone Subscriber Number Group Number Insured Name Patient Relationship to Insured Coverage Start Date Coverage End Date [facility] [address] [place] [phone] [id number] JallohJulio CésarNeliasugar [place] Child - Insured has Financial Responsibility Medical (General) History Medical History History ICD Code unremarkable
--- OUTSIDE RECORDS SUMMARY | 2025-01-03 11:32 | XMS_ITS | Clinical Summary ---
Author Organization [facility] Address [address] [place] [address] Phone Care Team Providers Care Merchant Banker Name Role Phone Lane Buck MD Primary Care Provider [phone] Immunizations Immunization Administration Dates Next Due DTaP [...] 72 12/30/2014 12:00 AM EDT Temperature 36.3 C (97.4 F) 01/13/2015 12:00 AM EDT Respiratory Rate - - Oxygen Saturation - [...] 09/19/2016 09/19/2006, 09/25/1999, 03/24/1996, Additional history exists COVID-19 Vaccine ( season) 2024 Influenza Vaccines (#1) 2025 03/19/20 13, 02/22/2011, 04/24/2010, Additional history exists Hepatitis B Vaccines Completed 06/19/1995, 1994, 1994 [...] age to complete this topic Care Teams Merchant Banker Relationship Specialty Start Date End Date Lane Buck MD [address] [place] [address] PCP - General 08/23/16
--- OUTSIDE RECORDS SUMMARY | 2025-01-03 11:33 | XMS_ITS | Patient Health Record ---
Author Organization [facility]. Address [address] [place] [phone] Care Team Providers Care Erp Developer Name Role Phone other PCP, not listed Primary Care Provider Unav ailable Christina Darnell Unavailable [phone] [facility]Migration, Provider Unavailable Unavailable Reason For Referral No Information Medications Medication SIG (Take, Route, Frequency, Duration) Notes Start Date End Date Status Levothyroxine Sodium 25 MCG 1 tab(s) ora lly once a day Active Encounters Encounter Location Date Provider Diagnosis [facility]. [address] [place] [address] [phone] 08/08/2024 Provider zMigration Plan Of Treatment No Information Insurance Providers Payer Name Payer Address Payer Phone Subscriber Number Group Number Insured Name Patient Relationship to Insured Coverage Start Date Coverage End Date [facility] [address] [place] [phone] [id number] Mikel Jalloh Self - patient is the insured
== END 2025-01-03 11:24 | disposition home or self-care (01) ==
LOC: HO.HMCH 10:40
DX: F41.9 Anxiety disorder, unspecified (principal); F41.0 Panic disorder [episodic paroxysmal anxiety]; G43.909 Migraine, unspecified, not intractable, without status migrainosus; Z12.5 Encounter for screening for malignant neoplasm of prostate

== ENCOUNTER → 2025-01-03 10:39 | Outpatient (BNVA) | payer BC, SELFPAY | DX: F41.0 Panic disorder [episodic paroxysmal anxiety] (principal); G43.909 Migraine, unspecified, not intractable, without status migrainosus; Z79.899 Other long term (current) drug therapy; Z13.39 Encounter for screening examination for other mental health and behavioral disorders | CPT/HCPCS: 96127 ==

== ENCOUNTER 2025-04-12 15:22 | Outpatient (AMB) | payer BC, SELFPAY ==
--- NOTE | 2025-04-12 15:32 | MHC.PC.OV ---
Vital Signs 04/12/25 15:33 Height 5 ft 10 in Weight 211 lb 4 oz BMI 30.3 BP 120/80 Blood Pressure Location Lt brachial Position Sitting Pulse 67 Pulse Source Pulse Oximeter Temp 97.3 F Temp Source Temporal Artery Scan Pulse Oximetry (%) 98 Oxygen Delivery Method Room Air Intake Visit Reasons: Annual Exam Intake Note: Patient is here today for a physical. Safety Belt Installer Required: No Tail End Rider: Not Required per policy Accompanied by: Self / Same As Patient Allergies pollen extracts Allergy (Mild, Verified 04/12/25 15:46) Sneezing Medication List - Last Reconciled 04/12/25 by Tiffany Billings PA-C cetirizine 10 mg PO DAILY PRN fluoxetine 20 mg PO DAILY lorazepam 1 mg PO Q6-8H PRN propranolol ER 60 mg PO DAILY sumatriptan succinate 25 mg PO Q2-4H PRN Tobacco use date assessed: 04/12/25 Dental Screening Dental Screen Date: 01/03/25 HPI Annual Exam HPI Details 29-year-old male with past medical history of allergic rhinitis, keratosis pilaris, migraines and panic disorder last seen 12/2024 coming in for annual exam. Presenting with concerns related to migraines, anxiety, and depression management. The patient experiences migraines and has been using sumatriptan as needed, although he has not refilled his prescription in over a month and a half. He reports that wearing glasses has helped reduce the frequency of migraines, and he prefers to use propranolol consistently to manage them. The patient has been using lorazepam occasionally for anxiety and reports feeling unmotivated and tired, which he associates with his anxiety. He has a history of depression and has been prescribed fluoxetine, but he has not been taking it consistently due to issues with prescription refills. The patient reports symptoms of low motivation and fatigue, which he attributes to his depression. There is a discussion about the possibility of ADHD contributing to his symptoms of disorganization and procrastination. vaccines: Td UTD, declined [facility] Surgical History No pertinent past surgical history Family History Father No problems noted. Mother No problems noted. Other Mental health disorder Social History Housing: Apartment Alcohol intake: current Alcohol intake frequency: a few times a month Patient Tobacco Use Status: Never used Tobacco e-Cigarette/Vaping Use: Never Used Second Hand Smoke Exposure: No service: No Current occupational status: employed Cognitive needs: No Hearing needs: No Vision needs: Yes (Glasses) Questionnaire PHQ-9 Over the last 2 weeks, how often have you been bothered by any of the following problems? 1. Little interest or pleasure in doing things: several days 2. Feeling down, depressed, or hopeless: not at all 3. Trouble falling or staying asleep, or sleeping too much: several days 4. Feeling tired or having little energy: several days 5. Poor appetite or overeating: not at all 6. Feeling bad about yourself - or that you are a failure or have let yourself or your family down: not at all 7. Trouble concentrating on things, such as reading the newspaper or watching television: not at all 8. Moving or speaking so slowly that other people could have noticed. Or the opposite - being so fidgety or restless that you have been moving around a lot more than usual: not at all 9. Thoughts that you would be better off or of hurting yourself in some way: not at all Total score: 3 Depression Screening Interpretation: Negative Depression Screening Done: Yes Source: Developed by Drs. Speedy Liao, Yuko Sanders, Thee Clarke and colleagues, with an educational bc from [employer]. Thrive Questionnaire Date Thrive assessed: 01/03/25 I am a: Patient What is your living situation today?: I have a steady place to live Within the past 12 months, did the food you bought not last and you didn't have the money to get more?: Never true Within the past 12 months, did you worry whether your food would run out before you got money to buy more?: Never true Do you have trouble paying for medicines?: No Do you have trouble getting transportation to medical appointments?: No Do you have trouble paying your heating and electricity bill?: No Do you have trouble taking care of your child, family member or friend?: No Do you have trouble with day-to-day activities such as bathing, preparing meals, shopping, managing finances, etc.?: No Are you currently unemployed and looking for a job?: No Are you interested in more education?: I choose not to answer this question Please select the resources that you would like help with: None Currently or been in a relationship where the following occur: No concerns reported THRIVE Score: 0 DMITRIY-7 AMB Questionnaire DMITRIY-7 Date DMITRIY - 7 assessed: 01/03/25 Source: Developed by Drs. Speedy Liao, Yuko Sanders, Thee Clarke and colleagues, with an educational bc from [employer]. Review of Systems Const Denies body aches, Denies fatigue, Denies fever(s), Denies frequent falls, Reports headache(s) and Denies weakness Eyes Reports no additional complaints and Denies change in vision ENT Denies dysphagia, Denies dizziness, Denies facial pain, Reports headache(s), Denies nasal congestion and Denies odynophagia Card Denies chest pain, Denies syncope, Denies irregular heart rhythm, Denies leg edema, Denies lightheadedness and Denies dyspnea Resp Denies cough and Denies dyspnea GI Denies constipation, Denies dysphagia, Denies dyspepsia, Denies diarrhea, Denies nausea, Denies odynophagia and Denies vomiting Denies dysuria, Denies urinary frequency, Denies urinary hesitancy and Denies urinary urgency Musc Denies back pain and Denies myalgias Skin/Breast Reports system reviewed and no additional complaints, except as documented Neuro Denies dizziness, Denies syncope, Denies frequent falls, Reports headache(s) and Denies weakness Psych Reports no additional complaints Endo Denies fatigue Physical exam (Primary Care) Vital Signs: Last Vital Signs Temp 97.3 F 04/12/25 15:33 Pulse 67 04/12/25 15:33 BP 120/80 04/12/25 15:33 Pulse Ox 98 04/12/25 15:33 Oxygen Delivery Method Room Air 04/12/25 15:33 BMI result Body Mass Index 30.3 Tobacco/Smoking Status: Tobacco use Status Tobacco use date assessed 04/12/25 04/12/25 15:39 Patient Tobacco Use Status Never used Tobacco 04/12/25 15:39 e-Cigarette/Vaping Use Never Used 04/12/25 15:39 PHQ-9: PHQ-9 Score PHQ-9: Total score 3 04/12/25 15:50 Depression Screening Interpretation: Negative Thrive Assessment: Date of Thrive Assessment Date Thrive assessed 01/03/25 04/12/25 15:39 Currently or been in a relationship where the following occur: No concerns reported Const General: cooperative, healthy appearing, comfortable and no acute distress Orientation/consciousness: patient oriented x3 HENMT Head: Yes normocephalic Ears: hearing grossly normal bilaterally, external ears normal, TM's normal bilaterally and EAC's normal General nose exam: Normal external nose present Face and sinus: Yes normal facial exam and Yes sinuses nontender Mouth: Normal oral and palatal mucosa present and tongue normal Throat: Yes posterior oropharynx normal Eyes General: appearance normal, both eyes and all related structures Conjunctivae: conjunctivae normal Pupils: Equal, round and reactive pupils present EOM: EOMs intact bilaterally and No Nystagmus present Neck Neck: Yes normal visual inspection, Yes full ROM and Yes no lymphadenopathy Chest Chest palpation & inspection: normal inspection of the chest Resp Effort & Inspection: normal respiratory effort Auscultation: clear to auscultation bilaterally, no crackles, no rales, no rhonchi, no wheezes and breath sounds present Cardio Rate: regular rate Rhythm: regular rhythm Peripheral pulses: radial pulses present and dorsalis pedis present GI Inspection: Yes normal to inspection and No Abdominal wall edema Palpation (GI): Soft to palpation, not firm and nontender Auscultation: normal bowel sounds Rectal Exam - Male: Yes deferred General: Yes no CVA tenderness Back/Spine/Pelvis Back: no CVA tenderness Skin General skin exam: no rashes or lesions noted Neuro General: patient oriented x3 Cranial nerves: Yes Equal, round and reactive pupils present, Yes Midline tongue present, Yes Ability to bilaterally elevate shoulders present and No Nystagmus present Gait exam (Neuro): Normal gait present Extrem General: Yes normal to inspection, Yes full ROM, No no pedal edema and No edema Psych Speech and movement: Normal speech and movement present Affect: normal affect Insight: Good insight present (Psych) Judgement: Good judgement present (Psych) Coding Level of Care Code Est Pt Prev Care 18-39y(20713) Diagnoses Annual physical exam Z00.00 Anxiety F41.9 Depression F32.A Panic disorder F41.0 Migraine headache G43.909 Assessment & Plan Assessment & Plan (1) Annual physical exam: Code(s): Z00.00 - Encounter for general adult medical examination without abnormal findings Category: Medical Plan: Patient is up-to-date on recommended routine screening and vaccinations for his age. I did order for updated blood work to be completed before next visit. Healthy diet and regular exercise is encouraged. (2) Anxiety: Code(s): F41.9 - Anxiety disorder, unspecified Category: Medical Plan: Patient would like to try another medication I then fluoxetine. Plan to try on bupropion extended release has patient has difficulty remembering to take his medications and once daily dosing is more suitable for him. We will trial Wellbutrin for anxiety, depression and possibly ADHD and plan to follow up in 3 months. (3) Depression: Code(s): F32.A - Depression, unspecified Category: Medical Plan: See above plan (4) Panic disorder: Code(s): F41.0 - Panic disorder [episodic paroxysmal anxiety] Category: Medical Plan: See above (5) Migraine headache: Code(s): G43.909 - Migraine, unspecified, not intractable, without status migrainosus Category: Medical Plan: Migraines have been improving with the use of prescription lenses. He will continue on propranolol and use sumatriptan as needed as well. Declining referral to neurologist at this time Plan We discussed the management of migraines with sumatriptan and propranolol, emphasizing the importance of regular prescription refills. For anxiety, lorazepam will be used as needed. We explored the possibility of ADHD contributing to symptoms and considered Wellbutrin as a treatment option. The patient was advised to resume fluoxetine for depression and consider Wellbutrin if needed. Follow-up in three months was recommended to assess medication efficacy and adjust treatment as necessary. This note was constructed using voice recognition software. While every effort has been made to ensure accuracy and blending machine operator, still areas may have been included sometimes these areas may affect the content or meeting of the given symptoms. Total time spent caring for the patient today was 30 minutes. This includes time spent before the visit reviewing the chart, time spent during the visit, and time spent after the visit and documentation. Patient was informed and verbally consented to the use of an ambient scribe for clinic note documentation during this visit. Medications: New bupropion HCl XL (Wellbutrin XL) 150 mg PO QAM 90 tabs 0RF Refilled cetirizine 10 mg PO DAILY PRN 90 tabs 0RF allergy symptoms J30.9 - Allergic rhinitis, unspecified sumatriptan succinate do not exceed 8 doses per 24 hrs 25 mg PO Q2-4H PRN 20 tabs 2RF migraine headache propranolol ER 60 mg PO DAILY 90 caps 2RF On Hold fluoxetine Hold Comment: Dose Change 20 mg PO DAILY 90 caps 0RF
[2025-04-12 15:33] VITALS: BP 120/80; PULSE 67; TEMP 36.3; O2SAT 98; BMI 30.3
--- OUTSIDE RECORDS SUMMARY | 2025-04-12 20:29 | XMS_ITS | Clinical Summary ---
Author Organization [facility] Address [address] [place] [address] Phone Care Team Providers Care Medical Director Of Hospice Name Role Phone Lane Buck MD Primary Care Provider [phone] Immunizations Immunization Administration Dates Next Due DTaP [...] 03/24/1996, Additional history exists Influenza Vaccines (#1) 2025 03/19/20 13, 02/22/2011, 04/24/2010, Additional history exists COVID-19 Vaccine ( season) 2025 Hepatitis B Vaccines Completed 06/19/1995, 1994, 1994 [...] age to complete this topic Care Teams Medical Director Of Hospice Relationship Specialty Start Date End Date Lane Buck MD [address] [place] [address] PCP - General 08/23/16
--- OUTSIDE RECORDS SUMMARY | 2025-04-12 20:29 | XMS_ITS | Clinical Summary ---
Author Organization [facility] Address [address] [place] [phone] Phone Care Team Providers Care Chemistry Tutor Name Role Phone Lane Buck MD Primary Care Provider [phone] Allergies No known active allergies Medications salmon oil-omega-3 fatty acids 500-100 mg Cap Take by mouth daily. Active multivitamin Liqd Take 5 mL by mouth daily. Active minocycline (MINOCIN) 100 MG capsule Take 100 mg by mouth 2 (two) times a day. Active Active Problems Problem Noted Date Diagnosed Date Panic attack 09/16/2010 Overview (08/12/2014): Panic attack Uncoded school refusal 06/16/2010 Overview (08/12/2014): school refusal Anxiety 06/16/2010 Overview (08/12/2014): Anxiety Depressive disorder 06/16/2010 Overview (08/12/2014): Depressive disorder Seasonal allergic rhinitis 07/13/2009 Overview (08/12/2014): Seasonal allergic rhinitis Obesity 12/15/2007 Overview (08/12/2014): Obesity Immunizations Immunization Administration Dates Next Due DTaP, unspecified formulation 09/25/1999 ,03/24/1996,03/17/1995,01/14,1994 HPV,quadrivalent 02/20/2012,09/20/2011, 2 Hepatitis B, unspecified formulation 06/19/1995, 1994,1994 Hib, unspecified formulation 12/26/1995, 03/17/1995,01/14/1995,11/04 INFLUENZA, SPLIT VIRUS, TRIV ALENT W/ PRESERVATIVE IM 03/19/2013 Influenza, Unspecified Formulation 02/22,04/24/2010,07/13/2009(Defer red: Other - Patient declined. , Ordered By: [id number]),05/08/2007 MMR 09/25/1998,12/26/1995 Meningococcal MCV4P 01/28/2014,07/13/2009 Polio, Unspecified Formulation 0,03/24/1996,03/17/1995,01/14,1994 Tdap 09/19/2006 Varicella 07/13/2009,03/24/1996 Social History Tobacco Use Types Packs/Day Years Used Date Smoking Tobacco: Never Education Answer Date Recorded Are you interested in more education? Not on peng e 10/18/2022 Are you concerned about learning? Not on file 10/18/2022 No 10/18/2022 No 10/18/2022 Digital Access Answer Date Recorded No 11/18/2022 No 11/18/2022 No 11/18/2022 Reliable internet access at home? Not on file 11/18/2022 Device with a working camera? Not on file Sex and Gender Information Value Date Recorded Sex Assigned at Not on file Legal Sex Male 3:33 AM EST Gender Identity Not on file Sexual Orientation Not on file Last Filed Vital Signs Vital Sign Reading Time Taken Comments Blood Pressure 100/53 12/30/2014 9:15 AM EDT Pulse 72 12/30/2014 9:15 AM EDT Temperature 36.3 C (97.4 F) 01/13/2015 12:29 PM EDT Respiratory Rate - - Oxygen Saturation - - Inhaled Oxygen Concentration - - Weight 78.9 kg (174 lb) 12/30/2014 9:15 AM EDT Height 176.5 cm (5' 9.5 ) 12/30/2014 9:15 AM EDT Body Mass Index 25.33 12/30/2014 9:15 AM EDT Plan of Treatment Health Maintenance Due Date Last Done Comments DEPRESSION SCREENING 2006 SMOKING Hx and SMOKELESS TOBACCO SCREENING 09/24/2007 HEPATITIS C SCREENING 2012 HIV ONE-TIME SCREENING (18-65 YEARS) 2012 INFLUENZA VACCINE (#1) 2025 3, 02/22/2011, 04/24/2010, Additional history exists COVID-19 VACCINE ( season) 2025 09/15/2020 Adult Td,Tdap Booster 08/07/2026 08/07/2016, 007 HIB VACCINES Completed 12/26/1995, 02/22, 01/14/1995, Additional history exists MENINGOCOCCAL VACCINES (ACWY) Aged Out 01/28/2014, 07/13/2009 No longer eligibl e based on patient's age to complete this topic HEPATITIS A VACCINES Aged Out No long er eligible based on patient's age to complete this topic MENINGOCOCCAL VACCINES (B) Aged Out N o longer eligible based on patient's age to complete this topic PNEUMOCOCCAL VACCINES (0-49 years) Aged Out No longer eligible based on patient's age to complete this topic Medical Devices Not on file Insurance EPO [facility] POS EPO [facility] [place] [facility] POS [place]PO [place] [address] [place] [address] POS [place] [address] [place] [address] [place] [address] [place] [address] [address] [place] [address] [place] Care Teams Chemistry Tutor Relationship Specialty Start Date End Date Lane Buck MD [address] [place], [place] [phone] PCP - General Pediatric Medicine 01/10/15 Additional Source Comments The information contained in this document represents components of the legal health record. It is not the complete legal health record.[facility]
--- OUTSIDE RECORDS SUMMARY | 2025-04-12 20:29 | XMS_ITS | Encounter Summary ---
Author Organization [facility] Address [address] [place] [address] [place] [phone] Phone Care Team Providers Care Station Chief Name Role Phone Lane Buck MD Primary Care Provider [phone] Encounter Details Date Type Department Care Team (Latest Contact Info) Description 04/18/2015 Transcribe Orders [address] [address] Scarlett [email or web address] Backache, unspecified (Primary Dx) Social History Tobacco Use Types Packs/Day Years Used Date Smoking Tobacco: Never Sex and Gender Information Value Date Recorded Sex Assigned at Not on file Legal Sex Male 3:33 AM EST Gender Identity Not on file Sexual Orientation Not on file documented as of this encounter Plan of Treatment Not on file documented as of this encounter Visit Diagnoses Diagnosis Backache, unspecified- Primary documented in this encounter Care Teams Station Chief Relationship Specialty Start Date End Date Lane Buck MD [address] [place] [address] PCP - General Pediatric Medicine 01/10/15 documented as of this encounter Additional Source Comments The information contained in this document represents components of the legal health record. It is not the complete legal health record.[facility]
--- OUTSIDE RECORDS SUMMARY | 2025-04-12 20:29 | XMS_ITS | Clinical Summary ---
Author Organization [facility] Address [address] [id number] Care Team Providers Care Civil Engineering Assistant Name Role Phone No, Pcp MD Primary Care Provider Unavailabl e Allergies No known active allergies Medications cyclobenzaprine (FLEXERIL) 10 MG tablet Take 1 tablet (10 mg total) by mouth 3 (three) times a day as needed. 15 tablet 02/22/2016 Active Social History Tobacco Use Types Packs/Day Years Used Date Smoking Tobacco: Former Alcohol Use Standard Drinks/Week Comments No 0 (1 standard drink = 0.6 oz pur e alcohol) Sex and Gender Information Value Date Recorded Sex Assigned at Not on file Legal Sex Male 5:17 PM EDT Gender Identity Not on file Sexual Orientation Not on file Last Filed Vital Signs Vital Sign Reading Time Taken Comments Blood Pressure 110/69 02/22/2016 5:19 PM EDT Pulse 58 02/22/2016 5:19 PM EDT Temperature 37.1 C (98.7 F) 02/22/2016 5:19 PM EDT Respiratory Rate 16 02/22/2016 5:19 PM EDT Oxygen Saturation 100% 02/22/2016 5:19 PM EDT Inhaled Oxygen Concentration - - Weight - - Height 154.9 cm (5' 1 ) 02/22/2016 5:19 PM EDT Body Mass Index - - Plan of Treatment Not on file Insurance [employer] LIABILITY [facility] Care Teams Civil Engineering Assistant Relationship Specialty Start Date End Date No, PcpMD No Address [place] [address] PCP - General 02/22/16
--- OUTSIDE RECORDS SUMMARY | 2025-04-12 20:29 | XMS_ITS | Patient Health Record ---
Author Organization [facility] Address [address] [place] [phone] Care Team Providers Care Market Investigator Name Role Phone other PCP, not listed Primary Care Provider Unav ailable Christina Darnell Unavailable [phone] [facility], Provider Unavailable Unavailable Reason For Referral No Information Medications Medication SIG (Take, Route, Frequency, Duration) Notes Start Date End Date Status Levothyroxine Sodium 25 MCG 1 tab(s) ora lly once a day Active Encounters Encounter Location Date Provider Diagnosis [facility] [address] [place] [address] [phone] 08/08/2024 Provider zMigration Plan Of Treatment No Information Insurance Providers Payer Name Payer Address Payer Phone Subscriber Number Group Number Insured Name Patient Relationship to Insured Coverage Start Date Coverage End Date [facility] [address] [place] [phone] [id number] Mikel Jalloh Self - patient is the insured
--- OUTSIDE RECORDS SUMMARY | 2025-04-12 20:29 | XMS_ITS | Patient Health Record ---
Author Organization [facility] Address [address] [place] [phone] Care Team Providers Care Transfer Driver Name Role Phone ELIER MARTINEZ Unavailable [phone] Reason For Referral No Information Medications Medication [...] Status W/U Status Risk Notes Problem Allergic rhinitis ([id number]) Allergic Rhinitis (477.0) Active confirmed Plan Of Treatment No Information Insurance Providers Payer Name Payer Address Payer Phone Subscriber Number Group Number Insured Name Patient Relationship to Insured Coverage Start Date Coverage End Date [facility] [address] [place] [phone] [id number] Nelia Jalloh Natural Child - Insured has Financial Responsibility Medical (General) History Medical History History ICD Code unremarkable
== END 2025-04-12 16:33 | disposition home or self-care (01) ==
LOC: HO.HMCH 15:23
DX: Z00.00 Encounter for general adult medical examination without abnormal findings (principal); F41.9 Anxiety disorder, unspecified; F32.A Depression, unspecified; F41.0 Panic disorder [episodic paroxysmal anxiety]; G43.909 Migraine, unspecified, not intractable, without status migrainosus

== ENCOUNTER 2025-04-21 13:31 | Outpatient (AMB) | payer BC, SELFPAY ==
[2025-04-21 13:39] VITALS: BP 122/80; PULSE 75; RESP 18; TEMP 36.2; O2SAT 97
--- NOTE | 2025-04-21 13:39 | A.OFFPC_ITS ---
Vital Signs 04/21/25 13:39 Height 5 ft 10 in Weight 209 lb 6 oz BMI 30.0 BP 122/80 Blood Pressure Location Lt brachial Position Sitting Respiration 18 Pulse 75 Pulse Source Pulse Oximeter Temp 97.1 F Temp Source Temporal Artery Scan Pulse Oximetry (%) 97 Oxygen Delivery Method Room Air Intake Visit Reasons: kidney area pain Tabulating Machine Mechanic Required: No Allergies pollen extracts Allergy (Mild, Verified 04/21/25 13:46) Sneezing Medication List - Last Reconciled 04/21/25 by Anai Shultz MD bupropion HCl XL (Wellbutrin XL) 150 mg PO QAM cetirizine 10 mg PO DAILY PRN fluoxetine 20 mg PO DAILY Held on 04/12/25. Instructions: Dose Change lorazepam 1 mg PO Q6-8H PRN propranolol ER 60 mg PO DAILY sumatriptan succinate 25 mg PO Q2-4H PRN Tobacco use date assessed: 04/21/25 Dental Screening Dental Screen Date: 04/21/25 Did you have a dental visit in the last 12 months?: Yes Did you have a dental problem in the last 6 months where you did not have access to dental care?: No Was dental information given to patient?: Patient has dentist HPI HPI Comments History of Present Illness Details The patient is a 29-year-old male presenting with left flank pain that started yesterday morning. He initially felt an internal pressure that worsened throughout the day, and this morning he experienced more shooting, radiating pain in the same area. The pain can occur at rest and sometimes with movement, and the shooting spikes of pain cause him to feel nauseous. Associated symptoms within the last 48 hours include fatigue, tiredness, lightheadedness, and dizziness. He has not taken any medication for the pain. The patient denies any history of kidney problems or kidney stones. His blood pressure upon arrival was 90/60 mmHg, which he notes is unusually low for him, as his typical range is between 110 and 120 mmHg systolic. The repeat BP in clinic was 120/86 mmHg. [facility] Surgical History No pertinent past surgical history Family History Father No problems noted. Mother No problems noted. Other Mental health disorder Social History Housing: Apartment Alcohol intake: current Alcohol intake frequency: a few times a month Patient Tobacco Use Status: Never used Tobacco e-Cigarette/Vaping Use: Never Used Second Hand Smoke Exposure: No service: No Current occupational status: employed Cognitive needs: No Hearing needs: No Vision needs: Yes (Glasses) Questionnaire Thrive Questionnaire Date Thrive assessed: 01/03/25 I am a: Patient What is your living situation today?: I have a steady place to live Within the past 12 months, did the food you bought not last and you didn't have the money to get more?: Never true Within the past 12 months, did you worry whether your food would run out before you got money to buy more?: Never true Do you have trouble paying for medicines?: No Do you have trouble getting transportation to medical appointments?: No Do you have trouble paying your heating and electricity bill?: No Do you have trouble taking care of your child, family member or friend?: No Do you have trouble with day-to-day activities such as bathing, preparing meals, shopping, managing finances, etc.?: No Are you currently unemployed and looking for a job?: No Are you interested in more education?: I choose not to answer this question Please select the resources that you would like help with: None Currently or been in a relationship where the following occur: No concerns reported THRIVE Score: 0 DMITRIY-7 AMB Questionnaire DMITRIY-7 Date DMITRIY - 7 assessed: 01/03/25 Source: Developed by Drs. Speedy Liao, Yuko Sanders, Thee Clarke and colleagues, with an educational bc from [employer]. Review of Systems Const Details: As per HPI. Physical exam (Primary Care) Vital Signs: Last Vital Signs Temp 97.1 F 04/21/25 13:39 Pulse 75 04/21/25 13:39 Resp 18 04/21/25 13:39 BP 122/80 04/21/25 13:39 Pulse Ox 97 04/21/25 13:39 Oxygen Delivery Method Room Air 04/21/25 13:39 BMI result Body Mass Index 30.0 Tobacco/Smoking Status: Tobacco use Status Tobacco use date assessed 04/21/25 04/21/25 13:50 Patient Tobacco Use Status Never used Tobacco 04/21/25 13:50 e-Cigarette/Vaping Use Never Used 04/21/25 13:50 Thrive Assessment: Date of Thrive Assessment Date Thrive assessed 01/03/25 04/21/25 13:50 Currently or been in a relationship where the following occur: No concerns r eported Const Other: Pertinent findings are in BOLD GENERAL APPEARANCE NAD, activity normal for age, well developed/ well nourished, no cyanosis, pallor, or diaphoresis. EYES lids/conjunctiva normal. EARS/NOSE/THROAT Mucous membranes moist, nares normal, lips/teeth normal uvula midline without oral pharyngeal erythema, exudate or swelling TMs normal bilaterally. No lymphangitis/lymphedema. HEAD/NECK normocephalic atraumatic, no facial trauma, neck is supple. RESPIRATORY respiratory effort normal, speaks in full sentences, no tripod position, no accessory muscle use. Lungs clear to auscultation without rhonchi, wheezes, rales CARDIAC Regular rate and rhythm, no edema. ABDOMINAL Soft, ND/NT. No evidence of fluid wave. No pulsatile masses on exam, rebound tenderness, Sharma sign or pain over Mcburney's point. MUSCLES/EXTREMITIES No abnormal range of motion, no swelling. SKIN Warm, pink and dry. No rashes, dermatoses, petechiae or lesions. NEUROLOGICAL Speech is clear and appropriate. Normal level of consciousness. Gait and coordination are normal. 5/5 strength in all extremities. PSYCH Normal mood and affect. Judgement/competence is appropriate Results AMB Urinalysis, Automated UA Leukoctes 0 Mansoor/uL Last Edit by Debbie Cardenas MA on 04/21/25 14: 52 UA Nitrite Negative Last Edit by Debbie Cardenas MA on 04/21/25 14:5 2 UA Urobilinogen 0.2 mg/dL Last Edit by Debbie Cardenas MA on 04/21/25 14:52 UA Protein 15 mg/dL Last Edit by Debbie Cardenas MA on 04/21/25 14:52 UA pH 6.0 Last Edit by Debbie Cardenas MA on 04/21/25 14:52 UA Blood 0 Diego/uL Last Edit by Debbie Cardenas MA on 04/21/25 14:52 UA Specific [place] 1.015 Last Edit by Debbie Cardenas MA on 5 14:52 UA Ketone Negative Last Edit by Debbie Cardenas MA on 04/21/25 14:52 UA Bilirubin 0 mg/dL Last Edit by Debbie Cardenas MA on 04/21/25 14:5 2 UA Glucose 0 mg/dL Last Edit by eDbbie Cardenas MA on 04/21/25 14:52 Coding Level of Care Code Est Pt Level 3 (33864) Diagnoses Flank pain R10.9 Time Spent (min) 30 Assessment & Plan Assessment & Plan (1) Flank pain: Code(s): R10.9 - Unspecified abdominal pain Category: Medical Plan: - The patient's new onset shooting flank pain, while concerning for a kidney issue, is considered less likely to be a primary renal cause. - A stat renal ultrasound will be ordered to rule out nephrolithiasis or other pathologies. - A uavpv-xr-urgl urinalysis performed. Negative. - The patient was advised he may take ibuprofen for pain management following the visit. Plan I explained to the patient that while I think a significant kidney issue is less likely, we should perform some tests to be on the safe side. I have ordered a stat kidney ultrasound and an in-office urine test to check for infection. We also discussed that his blood pressure was lower than his usual however the repeat BP was within normal range. I advised him he can take ibuprofen for pain relief after today's visit. Orders: Orders AMB Urinalysis Auto Microscop. Today R10.9 - Unspecified abdominal pain US renal LT Today R10.9 - Unspecified abdominal pain AMB Urinalysis Automated Today Z13.9 - Encounter for screening, unspecified
--- OUTSIDE RECORDS SUMMARY | 2025-04-21 16:33 | XMS_ITS | Clinical Summary ---
Author Organization [facility] Address [address] [place] [address] Phone Care Team Providers Care Glass Worker Name Role Phone Lane Buck MD Primary Care Provider [phone] Immunizations Immunization Administration Dates Next Due DTaP [...] age to complete this topic Care Teams Glass Worker Relationship Specialty Start Date End Date Lane Buck MD [address] [place] [address] PCP - General 08/23/16
--- OUTSIDE RECORDS SUMMARY | 2025-04-21 16:33 | XMS_ITS | Patient Health Record ---
Author Organization [facility] B[facility] Address [address] [place] [phone] Care Team Providers Care Marketing Recruiter Name Role Phone ELIER MARTINZE Unavailable [phone] Reason For Referral No Information Medications Medication [...] W/U Status Risk Notes Problem Allergic rhinitis (31302860) Allergic Rhinitis (477.0) Active confirmed Plan Of Treatment No Information Insurance Providers Payer Name Payer Address Payer Phone Subscriber Number Group Number Insured Name Patient Relationship to Insured Coverage Start Date Coverage End Date [facility] [address] [place] [phone] [id number] Nelia Jalloh Natural Child - Insured has Financial Responsibility Medical (General) History Medical History History ICD Code unremarkable
--- OUTSIDE RECORDS SUMMARY | 2025-04-21 16:34 | XMS_ITS | Patient Health Record ---
Author Organization [facility] Address [address] [place] [phone] Care Team Providers Care Bioinformatics Technician Name Role Phone other PCP, not listed Primary Care Provider Unav ailable Christina Darnell Unavailable [phone] zMigration, Provider Unavailable Unavailable Reason For Referral No Information Medications Medication SIG (Take, Route, Frequency, Duration) Notes Start Date End Date Status Levothyroxine Sodium 25 MCG 1 tab(s) ora lly once a day Active Encounters Encounter Location Date Provider Diagnosis [facility] [address] [place] [address] [phone] 08/08/2024 Provider zMigration Plan Of Treatment No Information Insurance Providers Payer Name Payer Address Payer Phone Subscriber Number Group Number Insured Name Patient Relationship to Insured Coverage Start Date Coverage End Date [facility] [address] [place] [phone] [id number] Mikel Jalloh Self - patient is the insured
== END 2025-04-21 14:43 | disposition home or self-care (01) ==
LOC: HO.HMCH 13:32
PROVIDERS: Visit Provider Internal Medicine
DX: Z13.9 Encounter for screening, unspecified (principal); R10.9 Unspecified abdominal pain

== ENCOUNTER → 2025-04-21 13:31 | Outpatient (BNVA) | payer BC, SELFPAY | PROVIDERS: Visit Provider Internal Medicine | DX: R10.A2 Flank pain, left side (principal) | CPT/HCPCS: 81003 ==

== ENCOUNTER 2025-04-21 15:13 | Outpatient (REF) | payer BC, SELFPAY ==
--- NOTE | ~2025-04-21 | US_ITS ---
EXAMINATION: US KIDNEY LEFT HISTORY: R10.9 - Unspecified abdominal pain - LEFT FLANK PAIN TECHNIQUE: Real-time grayscale ultrasound imaging of the left kidney was performed and images were reviewed. COMPARISON: There are no prior studies available for comparison. FINDINGS: The left kidney measures 9.7 x 5.0 x 5.0 cm. Renal parenchymal echotexture and thickness are normal. There are no masses. There is no hydronephrosis or renal calculi. US/US renal LT IMPRESSION: Unremarkable left renal ultrasound. Electronically signed by: Speedy Basurto MD 04/21/2025 03:33 PM EDT
--- OUTSIDE RECORDS SUMMARY | 2025-04-21 17:56 | XMS_ITS | Encounter Summary ---
Author Organization [facility] Address [address] [place] [address] [place] [phone] Phone Care Team Providers Care Professional Bass Fisher Name Role Phone Lane Buck MD Primary Care Provider [phone] Encounter Details Date Type Department Care Team (Latest Contact Info) Description 04/18/2015 Transcribe Orders [address] [address] Scarlett [email or web address] Backache, unspecified (Primary Dx) Social History Tobacco [...] Primary documented in this encounter Care Teams Professional Bass Fisher Relationship Specialty Start Date End Date Lane Buck MD [address] [place] [address] PCP - General Pediatric Medicine 01/10/15 documented as of this encounter Additional Source Comments The information contained in this document represents components of the legal health record. It is not the complete legal health record.[facility]
--- OUTSIDE RECORDS SUMMARY | 2025-04-21 17:56 | XMS_ITS | Clinical Summary ---
Author Organization [facility] Address [address] [phone] Care Team Providers Care Cutter Hand Name Role Phone No, Pcp MD Primary [...] Treatment Not on file Insurance AUT[employer] LIABILITY [facility] Care Teams Cutter Hand Relationship Specialty Start Date End Date No, PcpMD No Address [place] [address] PCP - General 02/22/16
--- OUTSIDE RECORDS SUMMARY | 2025-04-21 17:56 | XMS_ITS | Clinical Summary ---
Author Organization [facility] Address [address] [place] [phone] Phone Care Team Providers Care Stock Clipper Name Role Phone Lane Buck MD Primary Care Provider [phone] Allergies No known active allergies Medications salmon [...] Other - Patient declined. 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 Polio, Unspecified [...] Medical Devices Not on file Insurance EPO [facility] POS EPO [facility] [place] [facility] POS [place] [address] [place] [id number] [place] [address] [place] [address] [place] [address] [place] [address] POS [place] [address] [place] [address] [place] Care Teams Stock Clipper Relationship Specialty Start Date End Date Lane Buck MD [address] [place], [place] [phone] PCP - General Pediatric Medicine 01/10/15 Additional Source Comments The information contained in this document represents components of the legal health record. It is not the complete legal health record.[facility]
== END 2025-04-21 15:14 | disposition home or self-care (01) ==
LOC: HO.HMGCX 15:13
PROVIDERS: Visit Provider Internal Medicine
DX: R10.A2 Flank pain, left side (principal)
CPT/HCPCS: 76775

== ENCOUNTER → 2025-04-21 15:15 | Outpatient (BNV) | payer BC, SELFPAY | PROVIDERS: Visit Provider Radiology Diagnostic Radiology | DX: R10.9 Unspecified abdominal pain (principal) | CPT/HCPCS: 76775 ==

== ENCOUNTER 2025-05-26 15:07 | Outpatient (AMB) | payer BC, SELFPAY ==
--- NOTE | 2025-05-26 15:14 | AM.OFFWIN_ITS ---
Intake Vital Signs 05/26/25 15:15 Height 5 ft 10 in Weight 212 lb BMI 30.4 BP 122/80 Blood Pressure Location Lt brachial Position Sitting Pulse 61 Pulse Source Pulse Oximeter Pulse Oximetry (%) 98 Oxygen Delivery Method Room Air Intake Visit Reasons: EP-neck pain from fall Intake Note: Patient presents c/o neck pain related to a fall while shoveling on Friday. Patient Tobacco Use Status: Never used Tobacco Allergies pollen extracts Allergy (Mild, Verified 05/26/25 15:17) Sneezing Medication List - Last Reconciled 05/26/25 by Yamile Painter NP bupropion HCl XL (Wellbutrin XL) 150 mg PO QAM cetirizine 10 mg PO DAILY PRN lorazepam 1 mg PO Q6-8H PRN propranolol ER 60 mg PO DAILY sumatriptan succinate 25 mg PO Q2-4H PRN Do you need a note to return to daycare/school/sports/work: Yes HPI HPI Comments History of Present Illness Details 29 y/o male presents to the walk-in clin ic with c/o posterior neck pain radiating up to the head. Symptoms began Friday after shoveling snow. Patient reports he slipped and fell onto his buttocks but denies head strike or LOC. Pain has been persistent since onset. He has a h/o chronic migraines and feels the neck pain is triggering a migraine flare. Denies numbness, tingling, or weakness in the upper extremities. Has been taking Advil and acetaminophen with minimal relief. Also tried ice/heat with only mild temporary improvement. No other complaints. [facility] Medical History (Updated 05/26/25 @ 16:25 by Yamile Painter NP) Cervicalgia Surgical History No pertinent past surgical history Family History Father No problems noted. Mother No problems noted. Other Mental health disorder Social History Housing: Apartment Alcohol intake: current Alcohol intake frequency: a few times a month Patient Tobacco Use Status: Never used Tobacco e-Cigarette/Vaping Use: Never Used Second Hand Smoke Exposure: No service: No Current occupational status: employed Cognitive needs: No Hearing needs: No Vision needs: Yes (Glasses) Review of Systems Const All systems reviewed & are unremarkable except as noted in HPI and below Physical Exam Vital Signs: Last Vital Signs Pulse 61 05/26/25 15:15 BP 122/80 05/26/25 15:15 Pulse Ox 98 05/26/25 15:15 Oxygen Delivery Method Room Air 05/26/25 15:15 BMI result Body Mass Index 30.4 Const General: no acute distress; No comfortable Nutritional Appearance: obese Orientation/consciousness: patient oriented x3 HEENT Head: Yes normocephalic Neck Other: Tenderness to palpation over posterior cervical muscles; increased tension of paraspinals. No midline cervical spine bony tenderness. ROM limited secondary to pain (especially extension and rotation). Neck: Yes no lymphadenopathy Neuro Other: Sensation intact B/L UE. Strength 5/5 in shoulder abduction, elbow flexion/extension, nail technician strength. No focal deficits. General: patient oriented x3, gait normal and moves all extremities Psych Speech and movement: Clear speech present Affect: Anxious affect present Assessment & Plan Assessment & Plan (1) Cervicalgia: Code(s): M54.2 - Cervicalgia Plan: Acute Cervical Strain secondary to mechanical fall and overexertion while shoveling snow Migraine flare likely triggered by cervical muscle tension Low concern for cervical radiculopathy or serious head/neck injury (no neuro deficits, no head strike, no red-flag symptoms). Continue NSAIDs as tolerated: consider scheduled ibuprofen x 3?5 days with food. Recommend gentle stretching, light mobility, and avoiding heavy lifting/shoveling. Continue heat to relax muscles; ice for acute flares. Consider topical analgesics (lidocaine patch or diclofenac gel). Ordered Gabapentin 100 mg at Bedtime. Return/ER precautions: worsening headaches, visual changes, vomiting, focal weakness/numbness, severe neck stiffness, or inability to move neck. Medications: New diclofenac potassium 50 mg PO BID 14 tabs 0RF 7 days M54.2 - Cervicalgia gabapentin 100 mg PO BEDTIME 20 caps 0RF M54.2 - Cervicalgia acetaminophen 1,000 mg (2 x 500 mg) PO Q6H PRN 30 caps 0RF pain M54.2 - Cervicalgia Coding Level of Care Code Est Pt Level 4 (07645) Diagnoses Cervicalgia M54.2 Time Spent (min) 20
[2025-05-26 15:15] VITALS: BP 122/80; PULSE 61; O2SAT 98; BMI 30.4
== END 2025-05-26 16:23 | disposition home or self-care (01) ==
PROVIDERS: Visit Provider Nurse Practitioner Family
DX: M54.2 Cervicalgia (principal)